=== PATIENT | male | born 1980 | race Caucasian/White ===

== ENCOUNTER 2020-11-14 07:14 | Outpatient (CLI) | payer OTHER ==
[2020-11-14] MEDS ORDERED: GADOBUTROL 10 MMOL/10 ML VIAL ONE (08:47)
--- NOTE | 2020-11-14 14:32 | MRI Report ---
PROCEDURE: Hand LT W/O INDICATIONS: Mass on finger TECHNIQUE: Left hand imaged with the following pulse sequences: Coronal T1-weighted, fat-suppressed T2-weighted Sagittal T1-weighted, STIR Axial proton density weighted, fat-suppressed T2-weighted, fat-suppressed T1-weighted Contrast enhanced pulse sequences were not obtained, reportedly secondary to patient discomfort durin g the examination. COMPARISON: None. FINDINGS: No discrete fracture or acute marrow contusion identified. Marginal marrow signal changes present at the second and third MCP joints, although minimal if any T2 hyperintensity at the second metacarpal h ead. Well marginated T2 hyperintense homogenous cystic-appearing lesion measuring 9 x 6 x 10 mm, which may representing ganglion cyst although other solid T2 hyperintense lesions cannot be entirely excluded the absence of gadolinium contrast enhanced pulse sequences (such as myxoid tumors) IMPRESSION: Well marginated T2 hyperintense cystic-appearing lesion, statistically ganglion cyst, seen at the lev el of the proximal phalanx of the middle finger, in the region of the fiducial placed on the skin marita face. Technically, cannot exclude solid lesions such as T2 hyperintense myxoid tumors. As clinically warranted, focused ultrasound to confirm cystic nature could be performed versus contrast enhanced pu lse sequences as clinical suspicion dictates. Incidentally noted marginal marrow signal changes at the second and third metacarpal heads raising po ssibility of erosions, although technically indeterminate. Reviewed by: Silvestre Vega MD on 11/14/2020 2:31 PM PST Approved by: Silvestre Vega MD on 11/14/2020 2:31 PM PST Station ID: [id number]
== END 2020-11-14 07:15 | disposition home or self-care (01) ==
LOC: DI 07:14
PROVIDERS: ATTEND Orthopaedic Surgery
DX: M67.442 Ganglion, left hand (principal)

== ENCOUNTER 2024-01-05 10:15 | Outpatient (CLI) | payer OTHER ==
--- NOTE | 2024-01-05 11:47 | XRAY Report ---
PROCEDURE: Knee 3V RT INDICATIONS: KNEE PAIN, RIGHT TECHNIQUE: 3 views of the knee(s) were acquired. COMPARISON: None. FINDINGS: Bones: No fractures or dislocations. Joint spaces are maintained. No suspicious bony lesions. Soft tissues: No knee joint effusion. No suspicious soft tissue calcifications or masses. IMPRESSION: No acute bony abnormality. Joint spaces are maintained. Reviewed by: Samir Wheeler MD on 01/05/2024 11:46 AM PST Approved by: Samir Wheeler MD on 01/05/2024 11:46 AM PST Station ID: [id number]
== END 2024-01-05 10:30 | disposition home or self-care (01) ==
LOC: DI.N 10:15
PROVIDERS: ATTEND Family Medicine
DX: M25.561 Pain in right knee (principal)

== ENCOUNTER 2024-01-17 13:51 | Outpatient (CLI) | payer OTHER ==
--- NOTE | 2024-01-17 16:11 | MRI Report ---
PROCEDURE: Knee RT WO INDICATIONS: R KNEE PAIN TECHNIQUE: Noncontrast sagittal PD fast spin echo and T2 fast spin echo with fat saturation, sagittal 3-D gradie nt sequence with fat saturation; coronal T1 spin echo and PD fast spin echo with fat saturation, and axial PD fast spin echo with fat saturation through the knee. COMPARISON: Right knee radiograph dated 01/05/2024. FINDINGS: Image quality: Excellent. Menisci: Subtle signal abnormality involving posterior horn of medial meniscus extending to inferior articulating surface concerning for subtle oblique tear in this area. The lateral meniscus is intact. The meniscal root ligaments appear intact. Cruciate ligaments: The anterior cruciate ligament is mildly thickened. The posterior cruciate ligam ent is intact. Medial structures: Low-grade proximal MCL sprain at its femoral insertion is seen. Visualized portion s of the pes anserinus tendons appear normal. No abnormal bursal fluid. Lateral structures: The lateral collateral ligament, long and short heads of the biceps femoris tend on appear intact. The popliteus tendon appears normal. Iliotibial band appears normal. Anterior structures: The quadriceps tendon is intact. Proximal patella tendinosis at its inferior pa tellar insertion is seen. Patellar alignment is normal. No femoral trochlear dysplasia or ventral tr ochlear prominence. No edema in the infrapatellar fat pad. Bones and cartilage: No bone marrow contusions or fractures. Mild medial and lateral femoral tibial compartment joint space narrowing and low-grade chondromalacia is seen. Patella cartilage is. Joint space: There is small knee joint fluid. There is a tiny Solorio's cyst. Normal appearing synovi al plicae are incidentally noted. IMPRESSION: 1.Finding is concerning for subtle oblique tear involving medial periphery of posterior horn medial m eniscus extending to inferior articulating surface. The lateral meniscus is intact. 2. Low-grade ACL sprain. No ACL rupture. The PCL is intact. 3. Low-grade MCL sprain. 4. Proximal patella tendinosis. No patellar tendon rupture. The quadriceps tendon is intact. 5. 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 No fracture or dislocation. Small joint effusion and tiny Solorio's cyst. No gross loose bodies. Reviewed by: Dominic Barrett MD on 01/17/2024 4:09 PM PDT Approved by: Dominic Barrett MD on 01/17/2024 4:09 PM PDT Station ID: [id number]
== END 2024-01-17 13:52 | disposition home or self-care (01) ==
LOC: DI 13:51
PROVIDERS: ATTEND Orthopaedic Surgery
DX: S83.511A Sprain of anterior cruciate ligament of right knee, initial encounter (principal); S83.411A Sprain of medial collateral ligament of right knee, initial encounter; M17.11 Unilateral primary osteoarthritis, right knee; M25.461 Effusion, right knee; M71.21 Synovial cyst of popliteal space [Baker], right knee; M94.261 Chondromalacia, right knee